=== PATIENT | male | born 1975 | race Caucasian/White ===

== ENCOUNTER 2021-03-28 12:40 | Emergency (ER) | payer OTHER ==
[~2021-03-28 12:40] MED LIST: PRINIVIL20 MG PO
[2021-03-28 16:10] LABS: BASOPHIL 0.5 % (0-2); EOSINOPHIL 0.7 % (0-5); HCT 46.1 % (42.0-52.0); LYMPHOCYTE 20.6 % (15-48); MCHC 34.7 g/dL (32.0-36.0); MCV 89.3 fL (78.0-100.0); MONOCYTE 6.2 % (0-12); MPV 9.7 fL (6.0-9.5); NEUTROPHIL 71.8 % (41-80); NRBC 0; PLT 280 K/uL (150-400); RBC 5.16 M/uL (4.70-6.00); RDW 11.7 % (11.5-14.0); WBC 8.2 K/uL (4.0-10.5)
[2021-03-28 16:40] LABS: ALBUMIN 4.3 g/dL (3.4-5.0); BILIRUBIN - TOTAL 0.8 mg/dL (0.2-1.0); BUN/CREAT RATIO (CALC) 13.3 RATIO; CREATININE 0.98 mg/dL (0.67-1.17); GLOBULIN (CALCULATION) 3.8 g/dL; POTASSIUM 4.2 mmol/L (3.5-5.1); TOTAL PROTEIN 8.1 g/dL (6.4-8.2)
[2021-03-28] MEDS ORDERED: PRINIVIL20 MG PO (17:36)
== END 2021-03-28 18:04 | disposition home or self-care (01) ==
LOC: FER 12:40
PROVIDERS: Nurse Practitioner Family
DX: I10 Essential (primary) hypertension (principal); Z79.899 Other long term (current) drug therapy
CPT/HCPCS: 36415; 80053; 84443; 85025; 99284